=== PATIENT | male | born 1945 | race Caucasian/White ===

== ENCOUNTER 2020-01-03 13:33 | Emergency (ER) | payer MEDICARE, OTHER ==
[2020-01-03] MEDS ORDERED: ACETAMINOPHEN 325 MG TAB PO ONE (13:56)
[2020-01-03] MEDS ORDERED: DILTIAZEM 25MG/5ML VIAL IV ONE (13:57)
[2020-01-03] MEDS ORDERED: DILTIAZEM HCL 125 MG in 0.9 % SODIUM CHLORIDE 100ML 100 ML IV SCH (14:00)
[2020-01-03] MEDS ORDERED: IPRATROPIUM/ALBUTEROL (0.5MG/3MG) NEB INH ONE (14:04)
--- NOTE | 2020-01-03 14:04 | Emergency Department Record ---
History of Present Illness - General Chief Complaint: Difficulty Breathing Stated Complaint: STROKE ? Time Seen by Provider: 01/03/20 13:48 Source: Patient, Family Mode of Arrival: Wheelchair Limitations: No limitations - History of Present Illness Initial Comments: The patient is here with his daughter due to being found sitting in his chair at home very weak and with SOB and coughing. The patient was last seen 4-5 days ago and his daughter just got home today from a trip and found him like this. The patient does live in her basement and she states he has been sitting in his chair unable to get up for at least 3 days. The patient does complain of a cough and congestion and weakness. He has a hx of COPD but no cardiac issues per his daughter. MD Complaint: Cough, Shortness of breath Onset/Timin -: Days(s) Severity: Moderate Severity scale (1-10): 4 Known History Of: COPD - Related Data Home Oxygen Therapy: No Home Medications Medication Instructions Recorded Confirmed Last Taken Albuterol Sulfate [Proair Hfa] 1 - 2 puff IH .EVERY 4-6 HOURS PRN 01/03/20 01/03/20 01/03/20 Atorvastatin Calcium 20 mg PO DAILY 01/03/20 01/03/20 01/03/20 Budesonide [Pulmicort Flexhaler] 90 mcg IH ASDIR 01/03/20 01/03/20 01/03/20 Bupropion HCl [Wellbutrin Sr] 100 mg PO DAILY 01/03/20 01/03/20 01/03/20 Cholecalciferol (Vitamin D3) 2,000 unit PO DAILY 01/03/20 01/03/20 01/03/20 [Vitamin D3] Escitalopram Oxalate [Lexapro] 10 mg PO DAILY 01/03/20 01/03/20 01/03/20 Losartan Potassium [Cozaar] 25 mg PO BID 01/03/20 01/03/20 01/03/20 Montelukast Sodium [Singulair] 10 mg PO DAILY 01/03/20 01/03/20 01/03/20 Omeprazole [Prilosec] 20 mg PO DAILY 01/03/20 01/03/20 01/03/20 Quetiapine Fumarate [Seroquel] 50 mg PO QHS 01/03/20 01/03/20 01/03/20 Tiotropium [place] [Spiriva 4 gm IH DAILY 01/03/20 01/03/20 01/03/20 Respimat] Trazodone HCl 200 mg PO QHS 01/03/20 01/03/20 01/03/20 Allergies Allergy/AdvReac Type Severity Reaction Status Date / Time No Known Drug Allergies Allergy Verified 01/03/20 13:43 Travel/Exposure Screening - Travel/Exposure Within Last 30 Days Have you traveled within the last 30 days?: No - Travel/Exposure Within Last Year Have you traveled outside the [place] in the last year?: No - Additonal Travel/Exposure Details Have you been exposed to anyone with a communicable illness?: No - Travel Symptoms Symptom Screening: None Review of Systems Constitutional: Reports: Chills, Fever, Malaise Eyes: Denies: Eye discharge ENT: Reports: Congestion Respiratory: Reports: Cough. Denies: Dyspnea Cardiovascular: Denies: Chest pain Endocrine: Reports: Fatigue Gastrointestinal: Denies: Nausea Genitourinary: Denies: Dysuria Musculoskeletal: Denies: Arthralgia Skin: Denies: Bruising Past Medical History - SOCIAL HISTORY Smoking Status: Current every day smoker Alcohol Use: None Drug Use: None - RESPIRATORY Hx Respiratory Disorders: Yes Hx COPD: Yes Hx Dyspnea: Yes - CARDIOVASCULAR Hx Cardio Disorders: Yes Comment:: elevated cholesterol - NEURO Hx Neuro Disorders: No - GI Hx GI Disorders: No - Hx Genitourinary Disorders: No - ENDOCRINE Hx Endocrine Disorders: No - MUSCULOSKELETAL Hx Musculoskeletal Disorders: No - PSYCH Hx Psych Problems: Yes Comment:: PTSD - HEMATOLOGY/ONCOLOGY Hx Hematology/Oncology Disorders: No Family Medical History Any Significant Family History?: Yes Physical Exam - General General Appearance: Alert, Cooperative, Mild distress - Head Head exam: Atraumatic, Normocephalic - Eye Eye exam: Normal appearance, PERRL - ENT ENT exam: Mucous membranes dry Throat exam: Normal inspection. negative: Tonsillar erythema, Tonsillar exudate - Neck Neck exam: Normal inspection, Full ROM. negative: Tenderness - Respiratory Respiratory exam: Accessory muscle use (mild.), Decreased breath sounds, Respiratory distress, Wheezes. negative: Normal lung sounds bilaterally - Cardiovascular Cardiovascular Exam: Regular rate, Normal rhythm, Normal heart sounds - GI/Abdominal GI/Abdominal exam: Soft, Normal bowel sounds. negative: Tenderness - Extremities Extremities exam: Normal inspection, Full ROM, Normal capillary refill. negative: Tenderness - Neurological Neurological exam: Abnormal gait, Alert. negative: Motor sensory deficit, Normal gait, Oriented X3 (The patient is oriented to his name, age, day and his daughters name but not to place and year.) - Psychiatric Psychiatric exam: negative: Anxious - Skin Skin exam: negative: Rash Course Vital Signs 01/03/20 13:47 Temperature 100.5 F H Pulse Rate 152 H Respiratory 22 Rate Blood Pressure 142/80 Pulse Ox 86 L - Reevaluation(s) Reevaluation #1: The patient is doing better at this time. He states his breathing is better. He now states he has been coughing blood up at times for a couple of days. 01/03/20 14:40 Reevaluation #2: The patient continues to improve. His RR is improving and his slight confusion is better. The patient again feels that his SOB is better and he denies any CP. I do feel he is to ill for this hospital and the family would like the patient to go to [facility]. I then did discuss the case with Dr. Armendariz and he did accept the patient as a direct admit at [facility]. 01/03/20 15:18 Medical Decision Making - Data Complexity MDM Data: Labs Ordered and/or Reviewed, X-Ray Ordered and/or Reviewed, EKG Ordered and/or Reviewed - Lab Data Result diagrams: 01/03/20 13:40 01/03/20 13:40 - EKG Data -: EKG Interpreted by Me EKG: Abnormal EKG (Afib at 140's. Neg for ischemia.) - Radiology Data Radiology results: Report reviewed (CXR: ROMARIO infiltrate.) Disposition Disposition: Transfer Clinical Impression: New onset a-fib Pneumonia Qualifiers: Pneumonia type: due to unspecified organism Laterality: unspecified laterality Lung location: unspecified part of lung Qualified Code(s): J18.9 - Pneumonia, unspecified organism Disposition: Acute Care Hospital Transfer Transfer To: [facility] Reason For Transfer: Cardiology Accepting Physician: Marcello Time Discussed w/Accepting Physician: 15:20 Condition: (2) Stable Forms: Patient Portal Access Time of Disposition: 15:21 Quality - Quality Measures Quality Measures: N/A - Blood Pressure Screening View Details: Yes Does Patient Have Any of the Following: No Blood Pressure Classification: Normal BP Reading Systolic Measurement: 113 Diastolic Measurement: 76 Screening for High Blood Pressure: < Normal BP, F/U Not Required > [[id number]]
[2020-01-03 14:13] LABS: HEMATOCRIT 41.2 % (42.0-52.0); HEMOGLOBIN 13.4 gm/dl (14.0-18.0); MEAN CELL VOLUME 96.7 fl (81-97); MEAN CORPUSCULAR HGB CONC 32.5 g/dl (32-36); MEAN PLATELET VOLUME 10.2 fl (7.4-10.4); PLATELET COUNT 260 K/uL (130-400); RED BLOOD COUNT 4.26 M/uL (4.40-5.70); RED CELL DISTRIBUTION WIDTH 13.8 % (11.5-14.5)
[2020-01-03 14:14] LABS: MEAN CORPUSCULAR HEMOGLOBIN 31.4 pg (27-33); WHITE BLOOD COUNT W/O DIFF 22.6 K/uL (4.2-12.2)
[2020-01-03] MEDS ORDERED: METHYLPREDNISOLONE PF 125MG/VIAL IVP ONE (14:21)
[2020-01-03] MEDS ORDERED: 0.9 % SODIUM CHLORIDE 1000ML 1,000 ML IV ONE (14:29)
[2020-01-03 14:30] LABS: PARTIAL THROMBOPLASTIN TIME 22.9 SECONDS (24.5-39.1); PROTHROMBIN TIME (PATIENT) 10.3 SECONDS (9.5-12.1)
[2020-01-03 14:36] LABS: BLOOD UREA NITROGEN 34 mg/dL (8-23); CREATININE 1.1 mg/dL (0.7-1.2); EST GLOMERULAR FILTRATION RATE > 60 mL/min
[2020-01-03 14:37] LABS: TOTAL PROTEIN 7.7 g/dL (6.6-8.7)
[2020-01-03] MEDS ORDERED: CEFTRIAXONE 1GM/50ML BAG 1 GM/50 ML BAG IVPB ONE (14:37)
[2020-01-03] MEDS ORDERED: AZITHROMYCIN 500 MG in 0.9 % SODIUM CHLORIDE 250ML 250 ML IVPB ONE (14:38)
[2020-01-03 14:39] LABS: GLUCOSE,RANDOM 132 mg/dL (74-109)
[2020-01-03 14:39] LABS: ALLEN TEST PASS; ARTERIAL BLOOD GAS BASE EXCESS 1.6 mmol/L (-2 - 3); ARTERIAL BLOOD GAS HCO3 24.1 mmol/L (18-23); ARTERIAL BLOOD GAS PCO2 31.4 mmHg (35-48)
[2020-01-03] MEDS ORDERED: 0.9 % SODIUM CHLORIDE 1,000 ML BAG IV ONE (14:40)
[2020-01-03 14:42] LABS: ALB/GLOB RATIO 0.6 (1.1-1.8); ALBUMIN 2.8 g/dL (4.0-5.0); ALKALINE PHOSPHATASE 111 U/L (40-129); ALT/SGPT 31 U/L (<41); AST/SGOT 53 U/L (10.0-50.0)
--- NOTE | 2020-01-03 14:47 | RADIOLOGY REPORT ---
EXAMINATION: Single View Chest EXAM DATE: 01/03/2020 2:21 PM TECHNIQUE: Single view chest INDICATION: ADRIANNE COMPARISON: 05/15/2014 ENCOUNTER: Not applicable FINDINGS: Cardiac silhouette stable. Left upper lobe consolidation. No pneumothorax or pleural effusion. Follow -up study recommended until resolution. IMPRESSION: Left upper lobe consolidation. Follow-up study until resolution as clinically directed. NOTE: There is a follow-up recommendation in this report. Dictated by: Javier Carney MD on 01/03/2020 2:45 PM. .
[2020-01-03 14:52] LABS: THYROID STIMULATING HORMONE 2.89 uIU/mL (0.270-4.20)
[2020-01-03] MEDS ORDERED: ALBUTEROL SULFATE (0.083%) 2.5 MG/3 ML NEB INH ONE (14:54)
== END 2020-01-03 16:45 | disposition short-term general hospital (02) ==
LOC: ER 13:33
DX: I48.91 Unspecified atrial fibrillation (principal); J18.9 Pneumonia, unspecified organism; R53.1 Weakness; J44.9 Chronic obstructive pulmonary disease, unspecified; F17.210 Nicotine dependence, cigarettes, uncomplicated
CPT/HCPCS: 36600; 71045; 80053; 82375; 82803; 83605; 83880; 84145; 84443; 84484; 85027; 85610; 85730; 86140; 93005; 93010; 94640; 96365; 96366; 96368; 96375; 99285; J0456; J0696; J2930; J7050